=== PATIENT | male | born 1970 | race Caucasian/White ===

== ENCOUNTER 2016-11-05 13:12 | Emergency (ER) | payer OTHER ==
[~2016-11-05] VITALS: Ht 172.7 cm; Wt 111.1 kg
[2016-11-05] MEDS ORDERED: GLUCOPHAGE1000 MG PO (13:34)
[2016-11-05] MEDS ORDERED: ZOCOR40 MG PO (13:34)
[2016-11-05] MEDS ORDERED: MOBIC15 MG PO (13:34)
[2016-11-05] MEDS ORDERED: HYDR25T PO (13:34)
[2016-11-05] MEDS ORDERED: HYDROCODONE BIT1 T11 PO (13:35)
[2016-11-05] MEDS ORDERED: NORVASC10 MG PO (13:35)
[2016-11-05] MEDS ORDERED: LISINOPRIL40 MG PO (13:35)
== END 2016-11-05 15:36 | disposition home or self-care (01) ==
LOC: ED 13:12
DX: M25.511 Pain in right shoulder (principal)

== ENCOUNTER 2018-04-08 12:43 | Emergency (ER) | payer OTHER ==
[~2018-04-08] VITALS: Ht 170.1 cm; Wt 106.6 kg
[~2018-04-08 12:43] MED LIST: GLUCOPHAGE1000 MG PO; HYDR25T PO; HYDROCODONE BIT1 T11 PO; LISINOPRIL40 MG PO; MOBIC15 MG PO; NORVASC10 MG PO; ZOCOR40 MG PO
== END 2018-04-08 14:46 | disposition home or self-care (01) ==
LOC: ED 12:43
DX: S46.912A Strain of unspecified muscle, fascia and tendon at shoulder and upper arm level, left arm, initial encounter (principal); S43.005A Unspecified dislocation of left shoulder joint, initial encounter; X58.XXXA Exposure to other specified factors, initial encounter; Y93.89 Activity, other specified; Y92.89 Other specified places as the place of occurrence of the external cause; Y99.8 Other external cause status; Z79.899 Other long term (current) drug therapy

== ENCOUNTER 2019-01-05 15:44 | Observation (INO) | payer OTHER ==
[~2019-01-05] VITALS: Ht 167.6 cm; Wt 106.6 kg
--- NOTE | ~2019-01-05 | EKG ---
[place], [place] ELECTROCARDIOGRAM REPORT NAME: NARESH GLASS UNIT #: [id number] ROOM: 416 DOCTOR: ODALYS DRAFT REPORT BIRTHDATE: [birth year] [facility] Test Date: 2019-01-05 Test Time: 21:01:47 Pat Name: NARESH GLASS Department: Room: 416 1 Gender: M Fish Housekeeper: Sarahi Rodriguez : 1970 Requested By: DHIRAJ SALEEM Order Number: [id number] Reading MD: Rolanda Urbina MD Measurements Intervals [place] Rate: 79 P: 37 MA: 162 QRS: -14 QRSD: 99 T: 34 QT: 355 QTc: 407 Interpretive Statements Sinus rhythm Abnormal R-wave progression, late transition Compared to ECG 01/05/2019 15:57:15 No significant changes Electronically Signed On 01-06-2019 16:58:49 PST by Rolanda Urbina MD CM:EKGRPT:ELECTROCARDIOGRAM REPORT 00 [id number] DHIRAJ PIEDRA DRAFT REPORT DHIRAJ SALEEM DO
--- NOTE | ~2019-01-05 | EKG ---
[place], [place] ELECTROCARDIOGRAM REPORT NAME: NARESH GLASS UNIT #: [id number] ROOM: 416 DOCTOR: ODALYS DRAFT REPORT BIRTHDATE: [birth year] [facility] Test Date: 2019-01-05 Test Time: 18:15:17 Pat Name: NARESH GLASS Department: Room: 416 1 Gender: M Protective Officer: Sarahi Rodriguez : 1970 Requested By: DHIRAJ SALEEM Order Number: [id number] Reading MD: Rolanda Urbina MD Measurements Intervals [place] Rate: 81 P: 37 GA: 168 QRS: -16 QRSD: 96 T: 30 QT: 363 QTc: 422 Interpretive Statements Sinus rhythm Borderline left axis deviation Abnormal R-wave progression, late transition Electronically Signed On 01-06-2019 16:57:52 PST by Rolanda Urbina MD CM:EKGRPT:ELECTROCARDIOGRAM REPORT [id number] 1657 DHIRAJ PIEDRA DRAFT REPORT DHIRAJ SALEEM DO
--- NOTE | ~2019-01-05 | EKG ---
[place], [place] ELECTROCARDIOGRAM REPORT NAME: NARESH GLASS UNIT #: [id number] ROOM: 416 DOCTOR: ODALYS DRAFT REPORT BIRTHDATE: [birth year] [facility] Test Date: 2019-01-05 Test Time: 15:57:15 Pat Name: NARESH GLASS Department: Room: 416 Gender: M Daytime Babysitter: Veronica Sheldon : 1970 Requested By: BILL BURROWS Order Number: [id number] Reading MD: Rolanda Urbina MD Measurements Intervals [place] Rate: 82 P: 33 UT: 164 QRS: -18 QRSD: 100 T: 25 QT: 359 QTc: 420 Interpretive Statements Sinus rhythm Borderline left axis deviation Abnormal R-wave progression, late transition No previous ECG available for comparison Electronically Signed On 01-05-2019 15:49:22 PST by Rolanda Urbina MD CM:EKGRPT:ELECTROCARDIOGRAM REPORT 1557 1549 BILL MORROW DRAFT REPORT BILL BURROWS MD
[2019-01-05 15:46] VITALS: BP 137/82
[2019-01-05 16:17] LABS: BASO # 0.1 10*3/uL (0.0-0.1); BASO % 0.7 % (0.0-1.0); EOS # 0.1 10*3/uL (0.0-0.4); EOS % 0.7 % (1.0-4.0); HEMATOCRIT 44.8 % (42.0-52.0); HEMOGLOBIN 15.6 g/dl (14.0-18.0); LYMPH # 2.1 10*3/uL (1.3-4.4); LYMPH % 15.8 % (27.0-41.0); MEAN CELL VOLUME 89.2 fl (80.0-94.0); MEAN CORPUSCULAR HGB 31.1 pg (27.0-31.0); MEAN CORPUSCULAR HGB CONC 34.8 g/dl (33.0-37.0); MEAN PLATELET VOLUME 10.1 fl (9.6-12.3); MONO # 1.2 10*3/uL (0.1-1.0); MONO % 9.3 % (3.0-9.0); NEUT # 9.5 10*3/uL (2.3-7.9); NEUT % 72.4 % (47.0-73.0); PLATELET COUNT AUTOMATED 221 10*3/uL (130-400); RED BLOOD COUNT 5.02 10*6/uL (4.50-5.90); RED CELL DISTRI WIDTH 12.6 % (0-14.5); WHITE BLOOD COUNT 13.1 10*3/uL (4.8-10.8)
[2019-01-05 16:40] LABS: ALBUMIN 3.8 gm/dl (3.1-4.5); ALKALINE PHOSPHATASE 80 U/L (45-117); BUN 16 mg/dl (7-24); CHLORIDE 102 mmol/L (98-107); CREATININE 0.91 mg/dL (0.70-1.30); LIPASE 157 U/L (73-393); POTASSIUM 3.4 mmol/L (3.5-5.1); SGOT/AST 22 IU/L (3-35); SGPT/ALT 79 U/L (12-78); SODIUM 137 mmol/L (136-145); TOTAL PROTEIN 7.9 gm/dL (6.4-8.2)
[2019-01-05 16:41] LABS: ACT PARTIAL THROMBO TIME 24.4 SECONDS (20.8-31.5)
[2019-01-05 16:53] LABS: TROPONIN I < 0.015 ng/ml (<0.045)
[2019-01-05 17:30] VITALS: BP 119/68
--- NOTE | 2019-01-05 17:30 | NUR ---
A 48, admitted to , under the services of MILTON Castaneda DO with a diagnosis of CHEST PAIN. Chief complaint is NO COMPLAINTS AT THIS TIME, PER PCP COME TO ER FOR ECG CHANGES. Patient arrived via stretcher from ER. Monitor applied. Initial assessment completed. Vital signs taken and recorded. MILTON CASTANEDA DO notified of admission to the unit. See assessment for past medical history, medications and allergies. Patient and/or family oriented to unit. [facility] visitation policy reviewed. Clothing/patient valuable form completed. FREDRICK GONZALEZ
[2019-01-05 17:37] VITALS: BP 117/72
[2019-01-05] MEDS ORDERED: GLUCOPHAGE500 M1 PO (17:37)
[2019-01-05 20:00] VITALS: BP 125/71
[2019-01-06] VITALS: BP 136/86; BP 143/92
--- NOTE | 2019-01-06 00:47 | NUR ---
24 HR chart check completed.
[2019-01-06 06:24] LABS: BASO # 0.1 10*3/uL (0.0-0.1); BASO % 0.7 % (0.0-1.0); EOS # 0.2 10*3/uL (0.0-0.4); EOS % 1.5 % (1.0-4.0); HEMATOCRIT 47.2 % (42.0-52.0); HEMOGLOBIN 15.7 g/dl (14.0-18.0); LYMPH # 2.5 10*3/uL (1.3-4.4); LYMPH % 18.3 % (27.0-41.0); MEAN CORPUSCULAR HGB 30.6 pg (27.0-31.0); MEAN CORPUSCULAR HGB CONC 33.3 g/dl (33.0-37.0); MEAN PLATELET VOLUME 10.5 fl (9.6-12.3); MONO # 1.4 10*3/uL (0.1-1.0); MONO % 10.5 % (3.0-9.0); NEUT # 9.3 10*3/uL (2.3-7.9); PLATELET COUNT AUTOMATED 220 10*3/uL (130-400); RED BLOOD COUNT 5.13 10*6/uL (4.50-5.90); RED CELL DISTRI WIDTH 12.7 % (0-14.5); WHITE BLOOD COUNT 13.6 10*3/uL (4.8-10.8)
[2019-01-06 06:48] LABS: BUN 18 mg/dl (7-24); CHLORIDE 101 mmol/L (98-107); CREATININE 0.97 mg/dL (0.70-1.30); POTASSIUM 3.7 mmol/L (3.5-5.1); SODIUM 140 mmol/L (136-145)
[2019-01-06 08:00] VITALS: BP 112/70
--- NOTE | 2019-01-06 09:00 | NUR ---
Elementary Substitute Teacher in to talk to patient. Patient states lives at home with mom. There are few steps in the home. 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 patient states he is independent in adls and ambulation, drives, patient states he will be going home when able and denies any home needs. HUE LOYD
[2019-01-06] MEDS ORDERED: PANTOPRAZOLE SO40 MG PO (11:09)
--- NOTE | 2019-01-06 12:00 | NUR ---
Discharge instructions reviewed with patient/family. Patient receptive and verbalizes understanding. Follow-up care arranged. Written instructions given to patient/family. HEPLOCK DISCONTINUED. WELL HEAD PUMPER REMOVED. PT PICKED UP BY FAMILY MEMBER. SHERRILL PRATT
== END 2019-01-06 12:00 | disposition home or self-care (01) ==
LOC: ED 15:44 → EDHOLD 17:15 → 4E 17:15
PROVIDERS: Internal Medicine; Nurse Practitioner Family; ADMIT Emergency Medicine
DX: R07.2 Precordial pain (principal); D72.829 Elevated white blood cell count, unspecified; E87.6 Hypokalemia; E11.65 Type 2 diabetes mellitus with hyperglycemia; I10 Essential (primary) hypertension; E66.9 Obesity, unspecified; R79.82 Elevated C-reactive protein (CRP); R74.0 Nonspecific elevation of levels of transaminase and lactic acid dehydrogenase [LDH]

== ENCOUNTER → 2019-04-15 | Outpatient (CLI) | payer OTHER ==
[~2019-04-15] MED LIST changes: +GLUCOPHAGE500 M1 PO; +PANTOPRAZOLE SO40 MG PO
== END | disposition home or self-care (01) ==
LOC: LAB 09:31 → US 10:00
PROVIDERS: Student in an Organized Health Care Education/Training Program
DX: K76.0 Fatty (change of) liver, not elsewhere classified (principal); R74.0 Nonspecific elevation of levels of transaminase and lactic acid dehydrogenase [LDH]; R79.89 Other specified abnormal findings of blood chemistry; I10 Essential (primary) hypertension; E11.9 Type 2 diabetes mellitus without complications

== ENCOUNTER → 2020-08-29 | Outpatient (CLI) | payer OTHER | END | disposition home or self-care (01) | LOC: RAD 15:50 | PROVIDERS: ATTEND Family Medicine | DX: M16.0 Bilateral primary osteoarthritis of hip (principal); M25.561 Pain in right knee ==

== ENCOUNTER → 2020-11-19 | Outpatient (CLI) | payer OTHER ==
[2020-11-19 07:01] LABS: BASO # 0.1 10*3/uL (0.0-0.1); BASO % 0.9 % (0.0-1.0); EOS # 0.2 10*3/uL (0.0-0.4); EOS % 2.8 % (1.0-4.0); HEMATOCRIT 41.6 % (42.0-52.0); LYMPH # 1.9 10*3/uL (1.3-4.4); LYMPH % 23.4 % (27.0-41.0); MEAN CORPUSCULAR HGB 30.7 pg (27.0-31.0); MEAN CORPUSCULAR HGB CONC 34.1 g/dl (33.0-37.0); MEAN PLATELET VOLUME 10.4 fl (9.6-12.3); MONO # 0.8 10*3/uL (0.1-1.0); MONO % 9.3 % (3.0-9.0); NEUT # 5.1 10*3/uL (2.3-7.9); NEUT % 62.5 % (47.0-73.0); PLATELET COUNT AUTOMATED 202 10*3/uL (130-400); RED BLOOD COUNT 4.62 10*6/uL (4.50-5.90); RED CELL DISTRI WIDTH 12.7 % (0-14.5); WHITE BLOOD COUNT 8.2 10*3/uL (4.8-10.8)
[2020-11-19 07:25] LABS: ALBUMIN 3.7 gm/dl (3.1-4.5); BUN 23 mg/dl (7-24); CHLORIDE 108 mmol/L (98-107); CHOLESTEROL 73 mg/dL (<200); CREATININE 0.84 mg/dL (0.70-1.30); POTASSIUM 3.7 mmol/L (3.5-5.1); SGOT/AST 18 IU/L (3-35); SGPT/ALT 38 U/L (12-78); SODIUM 140 mmol/L (136-145); TRIGLYCERIDES 71 mg/dl (<150); VLDL CHOLESTEROL 14 mg/dL (6-40)
[2020-11-19 07:27] LABS: ALKALINE PHOSPHATASE 71 U/L (45-117); HDL CHOLESTEROL 37 mg/dl (40-60); LDL CHOLESTEROL 22 mg/dL (9-159); TOTAL PROTEIN 7.2 gm/dL (6.4-8.2)
== END | disposition home or self-care (01) ==
LOC: LAB 06:36
PROVIDERS: ATTEND Student in an Organized Health Care Education/Training Program
DX: E11.9 Type 2 diabetes mellitus without complications (principal); E55.9 Vitamin D deficiency, unspecified

== ENCOUNTER 2022-10-25 11:49 | Emergency (ER) | payer OTHER ==
[~2022-10-25] VITALS: Ht 167.6 cm; Wt 111.1 kg
[2022-10-25] MEDS ORDERED: SEPTDS PO (12:53)
[2022-10-25] MEDS ORDERED: CEPHALEXIN500 M1 PO (12:53)
[2022-10-25] MEDS ORDERED: CILOXAN 5 ML5 M1 OP (12:53)
== END 2022-10-25 13:00 ==
LOC: ED 11:49
DX: L03.213 Periorbital cellulitis (principal); Z79.899 Other long term (current) drug therapy; Z90.89 Acquired absence of other organs

== ENCOUNTER → 2023-12-23 | Outpatient (CLI) | payer OTHER ==
[~2023-12-23] MED LIST changes: +CEPHALEXIN500 M1 PO; +CILOXAN 5 ML5 M1 OP; +SEPTDS PO
== END | disposition home or self-care (01) ==
LOC: ORTHO 02:56 → RAD 10:57
PROVIDERS: ATTEND Orthopaedic Surgery
DX: M16.12 Unilateral primary osteoarthritis, left hip (principal)

== ENCOUNTER → 2024-01-28 | Outpatient (CLI) | payer OTHER | END | disposition home or self-care (01) | LOC: US 01:14 | PROVIDERS: ATTEND Family Medicine | DX: K76.0 Fatty (change of) liver, not elsewhere classified (principal); K74.01 Hepatic fibrosis, early fibrosis; E11.9 Type 2 diabetes mellitus without complications; I10 Essential (primary) hypertension ==

== ENCOUNTER 2024-02-18 02:58 | Inpatient (IN) | payer OTHER ==
[2024-02-13 12:43] VITALS: BP 124/76
[2024-02-13 13:31] LABS: BASO # 0.1 10*3/uL (0.0-0.1); EOS # 0.2 10*3/uL (0.0-0.4); EOS % 3.1 % (1.0-4.0); HEMATOCRIT 43.5 % (42.0-52.0); LYMPH # 1.5 10*3/uL (1.3-4.4); LYMPH % 20.8 % (27.0-41.0); MEAN CORPUSCULAR HGB 30.2 pg (27.0-31.0); MEAN CORPUSCULAR HGB CONC 32.9 g/dl (33.0-37.0); MEAN PLATELET VOLUME 10.2 fl (9.6-12.3); MONO # 0.8 10*3/uL (0.1-1.0); NEUT # 4.6 10*3/uL (2.3-7.9); NEUT % 63.3 % (47.0-73.0); PLATELET COUNT AUTOMATED 215 10*3/uL (130-400); RED BLOOD COUNT 4.73 10*6/uL (4.50-5.90); RED CELL DISTRI WIDTH 12.6 % (0-14.5); WHITE BLOOD COUNT 7.2 10*3/uL (4.8-10.8)
[2024-02-13 13:36] LABS: BILIRUBIN Negative (Negative); BLOOD Negative (Negative); CLARITY Clear (Clear); COLOR Yellow (Yellow); GLUCOSE Negative (Negative); KETONE Negative (Negative)
[2024-02-13 13:37] LABS: LEUKO ESTERASE Negative (Negative); NITRITE Negative (Negative); UROBILINOGEN 0.2 E.U./dl (0.0-1.0)
[2024-02-13 13:41] LABS: ACT PARTIAL THROMBO TIME 27.6 SECONDS (20.0-32.1)
[2024-02-13 13:43] LABS: BACTERIA 1+; RBC 0-2 rbc/hpf (0-2); WBC 0-2 wbc/hpf (0-5)
[2024-02-13 13:52] LABS: ALKALINE PHOSPHATASE 91 U/L (46-116); BUN 13 mg/dl (9-23); CHLORIDE 103 mmol/L (98-107); POTASSIUM 3.9 mmol/L (3.4-5.1); SGPT/ALT 142 U/L (5-49); TOTAL PROTEIN 7.1 gm/dL (6.0-8.0)
[~2024-02-18] VITALS: Ht 167.6 cm; Wt 111.1 kg
[2024-02-18] VITALS (9 sets, daily range): BP systolic 90–125; BP diastolic 42–81
[~2024-02-18 02:58] MED LIST changes: +CINNAMON PLUS1 EACH PO; +LEXAPRO20 MG PO; +METFORMIN HYD1000 MG PO; +MULTIPLE VITAM1 EAC2 PO; +TRULICITY3 MG/0.5 M SQ
[2024-02-18] MEDS ORDERED: Vancomycin Hydrochloride 250 ML IV ONE ×2 (06:37→06:55)
[2024-02-18] MEDS ORDERED: SODIUM CHLORIDE 0.9% 1,000 ML IV ONE ×2 (06:37→06:55)
[2024-02-18] MEDS ORDERED: TRANEXAMIC ACID IN NACL,ISO-OS 100 ML IV ONE ×2 (06:37→06:55)
[2024-02-18] MEDS ORDERED: Midazolam Hydrochloride 2 MG/2 ML VIAL IV ONE ×2 (06:55→17:58)
[2024-02-18] MEDS ORDERED: Ropivacaine Hydrochloride 5 MG/ML 20 ML AMP IJ ONE (07:07)
[2024-02-18] MEDS ORDERED: Midazolam Hydrochloride 2 MG/2 ML VIAL ONE (07:08)
[2024-02-18] MEDS ORDERED: Bupivacaine Hydrochloride/Ep2 30 ML VIAL EPI ONE (07:15)
[2024-02-18] MEDS ORDERED: SODIUM CHLORIDE 0.9% 2,000 ML IV ONE (07:37)
[2024-02-18] MEDS ORDERED: LIDOCAINE HCL/EPINEPHRINE 50 ML VIAL ONE (07:47)
[2024-02-18] MEDS ORDERED: MORPHINE Sulfate 4 MG IV PRN (07:50)
[2024-02-18] MEDS ORDERED: Acetaminophen/Hydrocodone 5 MG/325 MG TABLET PO PRN (07:50)
[2024-02-18] MEDS ORDERED: MORPHINE Sulfate 2 MG/ML SYR IV PRN (08:05)
[2024-02-18] MEDS ORDERED: DOCUSATE SODIUM 100 MG CAP PO SCH (10:00)
[2024-02-18] MEDS ORDERED: ASPIRIN ENTERIC COATED 81 MG TAB PO SCH (10:00)
[2024-02-18] MEDS ORDERED: Cholecalciferol 2,000 UNIT TABLET (50 MCG) PO SCH (10:00)
[2024-02-18] MEDS ORDERED: Magnesium Hydroxide 30 ML UDC PO PRN (13:50)
[2024-02-18] MEDS ORDERED: Ondansetron Hydrochloride 4 MG/2 ML VIAL IV PRN (13:50)
[2024-02-18] MEDS ORDERED: ACETAMINOPHEN 325 MG TAB PO PRN (13:50)
[2024-02-18] MEDS ORDERED: BISACODYL 5 MG TAB PO PRN (13:50)
[2024-02-18] MEDS ORDERED: MORPHINE Sulfate 2 MG/ML SYR IV ONE ×2 (14:10→16:55)
[2024-02-18] MEDS ORDERED: DEXTROSE 10 % IN WATER 250 ML IV PRN (14:35)
[2024-02-18] MEDS ORDERED: INSULIN LISPRO 1 UNIT/0.01 ML SQ SCH (16:30)
[2024-02-18] MEDS ORDERED: Lidocaine Hydrochloride 2% 10 ML AMP IM ONE (17:58)
[2024-02-18] MEDS ORDERED: PROPOFOL 200 MG/20 ML VIAL IV ONE (17:58)
[2024-02-18] MEDS ORDERED: MUPIROCIN 15 GM TUBE NAS SCH (18:00)
[2024-02-18] MEDS ORDERED: Vancomycin Hydrochloride 250 ML IV SCH (22:00)
[2024-02-18] MEDS ORDERED: TEMAZEPAM 15 MG CAP PO PRN (22:00)
[2024-02-19 00:20] VITALS: BP 105/67
[2024-02-19 06:26] LABS: BUN 20 mg/dl (9-23); CHLORIDE 102 mmol/L (98-107); POTASSIUM 3.8 mmol/L (3.4-5.1)
[2024-02-19 06:44] LABS: HEMATOCRIT 36.2 % (42.0-52.0); MEAN CELL VOLUME 93.3 fl (80.0-94.0); MEAN CORPUSCULAR HGB 31.4 pg (27.0-31.0); MEAN CORPUSCULAR HGB CONC 33.7 g/dl (33.0-37.0); MEAN PLATELET VOLUME 10.5 fl (9.6-12.3); PLATELET COUNT AUTOMATED 191 10*3/uL (130-400); RED BLOOD COUNT 3.88 10*6/uL (4.50-5.90); WHITE BLOOD COUNT 14.9 10*3/uL (4.8-10.8)
[2024-02-19 06:46] LABS: MANUAL DIFF REFLEX YES
[2024-02-19 07:30] LABS: PLATELET SUFFICIENCY NORMAL (NORMAL); POLYCHROMASIA SLIGHT; TOTAL CELLS COUNTED 100 #CELLS; TOXIC GRANULATION SLIGHT
[2024-02-19 08:10] VITALS: BP 132/66
[2024-02-19] MEDS ORDERED: Pantoprazole Sodium 40 MG TAB PO SCH (10:00)
[2024-02-19] MEDS ORDERED: ESCITALOPRAM OXALATE 20 MG TAB PO SCH (10:00)
[2024-02-19] MEDS ORDERED: LISINOPRIL 40 MG TAB PO SCH (10:00)
[2024-02-19] MEDS ORDERED: HYDROCHLOROTHIAZIDE 25 MG TAB PO SCH (10:00)
[2024-02-19] MEDS ORDERED: amLODIPine besylate 10 MG TAB PO SCH (10:00)
[2024-02-19 12:00] VITALS: BP 110/55
[2024-02-19 16:00] VITALS: BP 130/61
[2024-02-19 20:00] VITALS: BP 116/57
[2024-02-20] VITALS: BP 109/60
[2024-02-20] MEDS ORDERED: Acetaminophen/Hydrocodone ES 7.5/325 tablet PO PRN (04:20)
[2024-02-20 07:05] LABS: BASO # 0.1 10*3/uL (0.0-0.1); BASO % 0.6 % (0.0-1.0); EOS # 0.1 10*3/uL (0.0-0.4); EOS % 0.4 % (1.0-4.0); HEMATOCRIT 35.5 % (42.0-52.0); LYMPH # 1.2 10*3/uL (1.3-4.4); LYMPH % 9.7 % (27.0-41.0); MEAN CELL VOLUME 93.9 fl (80.0-94.0); MEAN CORPUSCULAR HGB 30.4 pg (27.0-31.0); MEAN CORPUSCULAR HGB CONC 32.4 g/dl (33.0-37.0); MEAN PLATELET VOLUME 10.6 fl (9.6-12.3); MONO # 1.2 10*3/uL (0.1-1.0); MONO % 9.4 % (3.0-9.0); NEUT # 9.7 10*3/uL (2.3-7.9); NEUT % 79.1 % (47.0-73.0); PLATELET COUNT AUTOMATED 169 10*3/uL (130-400); RED BLOOD COUNT 3.78 10*6/uL (4.50-5.90); RED CELL DISTRI WIDTH 12.8 % (0-14.5); WHITE BLOOD COUNT 12.2 10*3/uL (4.8-10.8)
[2024-02-20 08:00] VITALS: BP 104/56
[2024-02-20 12:00] VITALS: BP 101/57
[2024-02-20] MEDS ORDERED: CHAIR CUSHION DEVICE ONE (12:04)
[2024-02-20 16:00] VITALS: BP 102/62
[2024-02-20 20:00] VITALS: BP 106/61
[2024-02-21] VITALS: BP 109/56; BP 116/61
[2024-02-21 06:41] LABS: BASO # 0.1 10*3/uL (0.0-0.1); BASO % 0.6 % (0.0-1.0); EOS # 0.2 10*3/uL (0.0-0.4); EOS % 1.2 % (1.0-4.0); HEMATOCRIT 34.9 % (42.0-52.0); LYMPH # 1.6 10*3/uL (1.3-4.4); LYMPH % 13.3 % (27.0-41.0); MEAN CELL VOLUME 93.6 fl (80.0-94.0); MEAN CORPUSCULAR HGB 30.3 pg (27.0-31.0); MEAN CORPUSCULAR HGB CONC 32.4 g/dl (33.0-37.0); MEAN PLATELET VOLUME 10.5 fl (9.6-12.3); MONO # 1.2 10*3/uL (0.1-1.0); MONO % 9.8 % (3.0-9.0); NEUT # 9.1 10*3/uL (2.3-7.9); NEUT % 74.1 % (47.0-73.0); PLATELET COUNT AUTOMATED 174 10*3/uL (130-400); RED BLOOD COUNT 3.73 10*6/uL (4.50-5.90); RED CELL DISTRI WIDTH 12.8 % (0-14.5); WHITE BLOOD COUNT 12.3 10*3/uL (4.8-10.8)
[2024-02-21 08:00] VITALS: BP 97/58
[2024-02-21 12:00] VITALS: BP 107/55
[2024-02-21 16:00] VITALS: BP 102/54
[2024-02-21 20:00] VITALS: BP 111/63
[2024-02-22] VITALS: BP 102/51
[2024-02-22 08:00] VITALS: BP 102/60
[2024-02-22 12:00] VITALS: BP 97/52
[2024-02-22 16:00] VITALS: BP 107/67
[2024-02-22 20:00] VITALS: BP 111/62
[2024-02-23] VITALS: BP 113/58
[2024-02-23 06:19] LABS: HEMATOCRIT 34.1 % (42.0-52.0); MEAN CELL VOLUME 93.7 fl (80.0-94.0); MEAN CORPUSCULAR HGB 30.8 pg (27.0-31.0); MEAN CORPUSCULAR HGB CONC 32.8 g/dl (33.0-37.0); MEAN PLATELET VOLUME 10.1 fl (9.6-12.3); PLATELET COUNT AUTOMATED 226 10*3/uL (130-400); RED BLOOD COUNT 3.64 10*6/uL (4.50-5.90); WHITE BLOOD COUNT 9.1 10*3/uL (4.8-10.8)
[2024-02-23 06:20] LABS: MANUAL DIFF REFLEX YES
[2024-02-23 08:00] VITALS: BP 107/55
[2024-02-23 08:19] LABS: BASOPHILS 1 % (0-1); PLATELET SUFFICIENCY NORMAL (NORMAL); TOTAL CELLS COUNTED 100 #CELLS
[2024-02-23 12:00] VITALS: BP 123/59
[2024-02-23 16:00] VITALS: BP 115/61
[2024-02-23 20:00] VITALS: BP 121/57
[2024-02-24] VITALS: BP 116/59
[2024-02-24 08:00] VITALS: BP 111/62
[2024-02-24] MEDS ORDERED: ASPIRIN ADULT L81 M2 PO (10:47)
[2024-02-24] MEDS ORDERED: HYDROCODONE-AC1 EAC2 PO (10:47)
[2024-02-24] MEDS ORDERED: DOCUSATE SOD100 MG PO (10:47)
[2024-02-24] MEDS ORDERED: VITAMIN D350 MCG PO (10:47)
[2024-02-24 12:00] VITALS: BP 128/62
== END 2024-02-24 11:40 | disposition home health service (06) | DRG 470 ==
LOC: SDC 02:58 → 4E 11:16 → SDC 12:30 → 4E 02-24 11:40 → SDC 02-25 07:30
PROVIDERS: Internal Medicine; Orthopaedic Surgery; ADMIT Internal Medicine; ATTEND Internal Medicine
PROC: 0SRB04Z Replacement of Left Hip Joint with Ceramic on Polyethylene Synthetic Substitute, Open Approach (ICD-10-PCS; principal; 2024-02-18)
PROC: 3E0T3BZ Introduction of Anesthetic Agent into Peripheral Nerves and Plexi, Percutaneous Approach (ICD-10-PCS; 2024-02-18)
DX: M16.12 Unilateral primary osteoarthritis, left hip (principal); K21.9 Gastro-esophageal reflux disease without esophagitis; F32.9 Major depressive disorder, single episode, unspecified; E11.65 Type 2 diabetes mellitus with hyperglycemia; R74.01 Elevation of levels of liver transaminase levels; I10 Essential (primary) hypertension; E66.9 Obesity, unspecified; Z82.49 Family history of ischemic heart disease and other diseases of the circulatory system; Z80.1 Family history of malignant neoplasm of trachea, bronchus and lung; Z80.3 Family history of malignant neoplasm of breast; Z68.39 Body mass index [BMI] 39.0-39.9, adult

== ENCOUNTER → 2024-03-04 | Outpatient (CLI) | payer OTHER ==
[~2024-03-04] MED LIST changes: +ASPIRIN ADULT L81 M2 PO; +DOCUSATE SOD100 MG PO; +HYDROCODONE-AC1 EAC2 PO; +VITAMIN D350 MCG PO
== END | disposition home or self-care (01) ==
LOC: ORTHO 03:06
PROVIDERS: ATTEND Orthopaedic Surgery
DX: Z47.1 Aftercare following joint replacement surgery (principal)

== ENCOUNTER → 2024-04-01 | Outpatient (CLI) | payer OTHER | END | disposition home or self-care (01) | LOC: ORTHO 08:47 | PROVIDERS: ATTEND Orthopaedic Surgery | DX: Z47.1 Aftercare following joint replacement surgery (principal); Z96.642 Presence of left artificial hip joint ==

== ENCOUNTER → 2024-05-11 | Outpatient (CLI) | payer OTHER | END | disposition home or self-care (01) | LOC: ORTHO 02:50 | PROVIDERS: ATTEND Orthopaedic Surgery | DX: Z47.1 Aftercare following joint replacement surgery (principal); Z96.642 Presence of left artificial hip joint ==

== ENCOUNTER 2024-06-20 14:37 | Emergency (ER) | payer OTHER ==
[~2024-06-20] VITALS: Ht 167.6 cm; Wt 104.3 kg
[2024-06-20] MEDS ORDERED: SODIUM CHLORIDE 0.9% 1,000 ML IV ONE (15:15)
[2024-06-20 15:26] LABS: BASO # 0.1 10*3/uL (0.0-0.1); BASO % 0.7 % (0.0-1.0); EOS # 0.3 10*3/uL (0.0-0.4); EOS % 2.7 % (1.0-4.0); HEMATOCRIT 43.7 % (42.0-52.0); LYMPH # 1.3 10*3/uL (1.3-4.4); LYMPH % 14.3 % (27.0-41.0); MEAN CELL VOLUME 89.7 fl (80.0-94.0); MEAN CORPUSCULAR HGB 30.4 pg (27.0-31.0); MEAN CORPUSCULAR HGB CONC 33.9 g/dl (33.0-37.0); MEAN PLATELET VOLUME 10.1 fl (9.6-12.3); MONO # 0.8 10*3/uL (0.1-1.0); MONO % 8.9 % (3.0-9.0); NEUT # 6.6 10*3/uL (2.3-7.9); NEUT % 72.4 % (47.0-73.0); PLATELET COUNT AUTOMATED 207 10*3/uL (130-400); RED BLOOD COUNT 4.87 10*6/uL (4.50-5.90); RED CELL DISTRI WIDTH 13.9 % (0-14.5); WHITE BLOOD COUNT 9.1 10*3/uL (4.8-10.8)
[2024-06-20 15:48] LABS: ALKALINE PHOSPHATASE 81 U/L (46-116); BUN 15 mg/dl (9-23); CHLORIDE 107 mmol/L (98-107); LIPASE 29 U/L (12-53); SGPT/ALT 70 U/L (5-49); TOTAL PROTEIN 7.2 gm/dL (6.0-8.0)
[2024-06-20] MEDS ORDERED: LOMOTIL 2.5-0.1 EACH PO (15:54)
== END 2024-06-20 16:17 | disposition home or self-care (01) ==
LOC: ED 14:37
PROVIDERS: Physician Assistant Medical
DX: R19.7 Diarrhea, unspecified (principal); R11.0 Nausea; I10 Essential (primary) hypertension; E11.9 Type 2 diabetes mellitus without complications; K21.9 Gastro-esophageal reflux disease without esophagitis; F32.A Depression, unspecified; Z90.89 Acquired absence of other organs; Z98.890 Other specified postprocedural states

== ENCOUNTER → 2024-08-10 | Outpatient (CLI) | payer OTHER ==
[~2024-08-10] MED LIST changes: +LOMOTIL 2.5-0.1 EACH PO
== END | disposition home or self-care (01) ==
LOC: ORTHO 08:21
PROVIDERS: ATTEND Orthopaedic Surgery
DX: Z47.1 Aftercare following joint replacement surgery (principal)

== ENCOUNTER → 2025-02-15 | Outpatient (CLI) | payer OTHER | END | disposition home or self-care (01) | LOC: ORTHO 02:23 | PROVIDERS: ATTEND Orthopaedic Surgery | DX: Z47.1 Aftercare following joint replacement surgery (principal); Z96.642 Presence of left artificial hip joint ==